=== PATIENT | female | born 1980 | race Caucasian/White ===

== ENCOUNTER 2020-04-15 16:00 | Emergency (ER) | payer BC ==
[~2020-04-15] VITALS: Ht 165.1 cm; Wt 117.9 kg
[2020-04-15] MEDS ORDERED: NEURONTIN 300M300 M2 PO (16:06)
[2020-04-15] MEDS ORDERED: LIPITOR 40 MG T40 M1 PO (16:06)
[2020-04-15] MEDS ORDERED: LISINOPRIL5 MG PO (16:06)
[2020-04-15] MEDS ORDERED: OMEPRAZOLE 20 M20 M1 PO (16:07)
[2020-04-15] MEDS ORDERED: CELEXA 20 MG TA20 MG PO (16:07)
[2020-04-15] MEDS ORDERED: DESYREL150 MG PO (16:07)
[2020-04-15 16:24] LABS: ABSOLUTE BASOPHILS 0.1 thou/uL (0.0-0.2); ABSOLUTE LYMPHOCYTES 1.3 thou/uL (0.8-5.3); ABSOLUTE MONOCYTES 0.4 thou/uL (0.0-1.2); ABSOLUTE NEUTROPHILS 4.9 thou/uL (1.6-8.1); BASOPHILS 0.8 %; EOSINOPHILS 0.2 %; HEMATOCRIT 39.5 % (37.0-47.0); HEMOGLOBIN 13.2 gm/dL (12.0-15.0); LYMPHOCYTES 19.4 %; MCH 26.8 pg (26.0-34.0); MCHC 33.4 g/dL (28.0-37.0); MCV 80.4 fL (80.0-100.0); MONOCYTES 5.7 %; NUCLEATED RBCS 0 /100WBC; PLATELET COUNT* 209 thou/uL (150-400); POLYS 73.9 %; RBC 4.91 mil/uL (4.20-5.00); RDW-CV 15.9 % (10.5-14.5); WBC 6.7 thou/uL (4.0-11.0)
[2020-04-15 16:33] LABS: URINE BILIRUBIN NEGATIVE (Negative); URINE BLOOD 1+ (Negative); URINE COLOR YELLOW; URINE GLUCOSE-RANDOM NEGATIVE (Negative); URINE KETONES NEGATIVE (Negative); URINE LEUKOCYTES-REFLEX NEGATIVE (Negative); URINE NITRITE-REFLEX NEGATIVE (Negative); URINE PROTEIN 3+ (Negative); URINE SPECIFIC GRAVITY 1.025 (1.005-1.030); URINE UROBILINOGEN 0.2 E.U./dl (0.2-1.0)
[2020-04-15 16:33] LABS: CALCIUM 8.5 mg/dL (8.5-10.1); CREATININE 2.6 mg/dL (0.6-1.3); POTASSIUM 4.1 mmol/L (3.5-5.1)
[2020-04-15 16:34] LABS: URINE CLARITY HAZY
[2020-04-15 16:37] LABS: ALBUMIN 3.2 g/dL (3.4-5.0); TOTAL BILIRUBIN 0.2 mg/dL (<0.1-1.0); TOTAL PROTEIN 7.9 g/dL (6.4-8.2)
[2020-04-15 16:41] LABS: SQUAMOUS >10 Many /LPF (0-3)
[2020-04-15 16:42] LABS: CASTS None Seen /LPF (None Seen); CRYSTALS None Seen /LPF (None Seen); URINE RBC None Seen /HPF (0-2); URINE WBC-REFLEX 0-5 Rare /HPF (0-5)
[2020-04-15] MEDS ORDERED: ZOFRAN ODT4 MG DISSOLVE (17:57)
[2020-04-15] MEDS ORDERED: AUGMENTIN 875-1 EACH PO (17:57)
[2020-04-15] MEDS ORDERED: ZPAK PO (17:57)
[2020-04-15 18:46] VITALS: BP 147/91
--- NOTE | 2020-04-17 13:45 | EKG ---
[place] [address] ELECTROCARDIOGRAM REPORT Name: KAROLINA MCCARTY Room: [facility]#: [id number] Admission: 04/15/20 Attend Phys: Discharge: 04/15/20 Date of : 82 Date of Service: 04/15/20 1606 Report #: [id number] THIS REPORT FOR: //name// [facility] ED Test Date: 2020-04-15 Test Time: 16:06:13 Pat Name: KAROLINA MCCARTY Department: Room: Gender: Boat Builder: TITA : 1980 Requested By: Hardik Stewart Order Number: [id number] Sena MD: Jhony Lutz Measurements Intervals [place] Rate: 90 P: 46 DE: 140 QRS: 20 QRSD: 74 T: 35 QT: 346 QTc: 424 Interpretive Statements Sinus rhythm No previous ECG available for comparison Electronically Signed On 04-17-2020 13:45:29 KEYBOARD INSTRUMENT REPAIRER by Jhony Lutz [email or web address] <ELECTRONICALLY SIGNED> By: Jhony Lutz MD, [facility] 04/17/20 1345 1606 1606 Jhony Lutz MD, FACC /EPI
== END 2020-04-15 18:51 | disposition home or self-care (01) ==
LOC: M.ERS 16:00
PROVIDERS: Emergency Medicine Emergency Medical Services
DX: U07.1 COVID-19 (principal); J18.9 Pneumonia, unspecified organism; R19.7 Diarrhea, unspecified; E78.00 Pure hypercholesterolemia, unspecified; I13.10 Hypertensive heart and chronic kidney disease without heart failure, with stage 1 through stage 4 chronic kidney disease, or unspecified chronic kidney disease; N18.4 Chronic kidney disease, stage 4 (severe); Z88.2 Allergy status to sulfonamides; Z90.710 Acquired absence of both cervix and uterus